=== PATIENT | female | born 2000 | race Caucasian/White ===

== ENCOUNTER 2023-03-11 09:48 | Emergency (ER) | payer OTHER ==
[~2023-03-11] VITALS: Ht 165.1 cm; Wt 52.3 kg
[2023-03-11 09:53] VITALS: TEMP 98.8
[2023-03-11] MEDS ORDERED: ETON68IM4 SD (09:56)
[2023-03-11] MEDS ORDERED: FOLI-130 PO (09:56)
[2023-03-11] MEDS ORDERED: THIA100T80 PO (09:56)
[2023-03-11 12:31] VITALS: BP 136/89; PULSE 102; RESP 18
[2023-03-11] MEDS ORDERED: PERID15L MM (12:52)
== END 2023-03-11 13:13 | disposition home or self-care (01) ==
LOC: EMS 09:49
DX: J06.9 Acute upper respiratory infection, unspecified (principal); F10.90 Alcohol use, unspecified, uncomplicated; Z90.49 Acquired absence of other specified parts of digestive tract
CPT/HCPCS: 87430; 99283

== ENCOUNTER 2025-05-11 02:58 | Emergency (ER) | payer OTHER ==
[~2025-05-11] VITALS: Ht 165.1 cm; Wt 77.3 kg
[~2025-05-11 02:58] MED LIST: ETON68IM4 SD; FOLI-130 PO; PERID15L MM; THIA100T80 PO
[2025-05-11 03:02] VITALS: BP 149/101; PULSE 85; RESP 18; TEMP 98.4; O2SAT 99
[2025-05-11 03:47] LABS: PLATELET COUNT (AUTO) 155 K/uL (150-450); RED BLOOD CELL COUNT(AUTO) 3.47 MIL/uL (4.00-5.20); RED CELL DISTRIBUTION WIDTH 16.9 % (11.5-14.5); WHITE BLOOD COUNT (AUTO) 6.5 K/uL (4.5-11.0)
[2025-05-11 03:51] LABS: RBC MORPHOLOGY COMMENT ABNORMAL RBC MORPH
[2025-05-11 03:54] LABS: CALCIUM, TOTAL 9.5 mg/dL (8.8-10.5); CREATININE 0.57 mg/dL (0.60-1.30); GLOMERULAR FILTR. RATE CALC > 60 mL/min (>60); GLUCOSE,RANDOM 114 mg/dL (70-110); SODIUM SERUM 138 mmol/L (136-145); UREA NITROGEN, BLOOD 8 mg/dL (7-18)
[2025-05-11 04:56] LABS: APPEARANCE,URINE CLEAR (CLEAR); GLUCOSE, URINE (UA) NEGATIVE (NEGATIVE); LEUKOCYTE ESTERASE ,URINE NEGATIVE (NEGATIVE); NITRATE,URINE NEGATIVE (NEGATIVE); OCCULT BLOOD,URINE NEGATIVE (NEGATIVE); SPECIFIC GRAVITIY, URINE 1.007 (1.003-1.030)
[2025-05-11] MEDS: IBUPROFEN 400 MG TABLET PO ONE (05:47)
[2025-05-11] MEDS: METOCLOPRAMIDE HCL 10 MG TABLET PO ONE (05:47)
[2025-05-11] MEDS: ACETAMINOPHEN 500 MG TABLET PO ONE (05:47)
[2025-05-11 06:17] LABS: ASPARTATE AMINOTRANSFERASE 87.0 U/L (15-37); TOTAL PROTEIN, SERUM 7.5 g/dL (6.4-8.2)
== END 2025-05-11 06:48 | disposition home or self-care (01) ==
LOC: EMS 03:01
DX: R20.2 Paresthesia of skin (principal); F41.9 Anxiety disorder, unspecified; I10 Essential (primary) hypertension; R13.10 Dysphagia, unspecified; Z32.02 Encounter for pregnancy test, result negative; Z90.49 Acquired absence of other specified parts of digestive tract
CPT/HCPCS: 70450; 80048; 80076; 81003; 84703; 85025; 99284